=== PATIENT | female | born 1930 | race Caucasian/White ===

== ENCOUNTER 2021-01-31 03:19 | Inpatient (IN) ==
[2021-01-31] MEDS ORDERED: Acetaminophen 325 MG TABLET PO PRN (10:43)
[2021-01-31] MEDS ORDERED: Melatonin 3 MG TABLET PO PRN (10:43)
[2021-01-31] MEDS ORDERED: Naloxone 0.4 MG/ML INJ IVP PRN (10:43)
[2021-01-31] MEDS ORDERED: 0.9 % Sodium Chloride 1,000 ML IVC SCH (10:45)
[2021-01-31] MEDS ORDERED: Furosemide 40 MG/4 ML VIAL IVP ONE (10:54)
[2021-01-31 12:01] LABS: Basophils # 0.1 K/mcL (0.0-0.2); Basophils % 0.8 %; Eosinophils # 0.2 K/mcL (0.0-0.6); Eosinophils % 1.8 %; Hematocrit 39.1 % (35.3-44.9); Hemoglobin 12.4 g/dL (11.5-15.4); Immature Granulocytes % 0.5 % (0-4); Lymphocytes # 1.3 K/mcL (0.6-4.6); Lymphocytes % 12.8 %; Mean Corpuscular HGB Conc 31.7 g/dL (31.6-35.5); Mean Corpuscular Hemoglobin 31.1 pg (28.0-33.3); Mean Platelet Volume 9.8 fL (9.4-12.4); Monocytes # 0.8 K/mcL (0.0-1.3); Monocytes % 7.7 %; Neutrophils # 7.9 K/mcL (1.6-8.9); Platelet Count 266 K/mcL (140-400); Red Blood Count 3.99 M/mcL (3.82-4.97); Red Cell Distribution Width 15.7 % (11.5-14.5); Segmented Neutrophils % 76.4 %; White Blood Count 10.3 K/mcL (4.3-11.1)
[2021-01-31 12:17] LABS: Albumin 3.3 g/dL (3.5-5.7); Bilirubin,Total 0.8 mg/dL (0.3-1.0); Globulin 3.4 g/dL (2.4-3.5); Potassium 3.3 mEq/L (3.5-5.1); Total Protein 6.7 g/dL (6.4-8.9)
[2021-01-31 13:16] LABS: Adenovirus Not Detected (Not Detect); Bordetella Pertussis Not Detected (Not Detect); Chlamydophila pneumoniae Not Detected (Not Detect); Coronavirus 229E Not Detected (Not Detect); Coronavirus HKU1 Not Detected (Not Detect); Coronavirus NL63 Not Detected (Not Detect); Coronavirus OC43 Not Detected (Not Detect); Human Metapneumovirus Not Detected (Not Detect); Human Rhinovirus/Enterovirus Not Detected (Not Detect); Influenza A Subtype 2009 H1 Not Detected (Not Detect); Influenza B Not Detected (Not Detect); Mycoplasma pneumoniae Not Detected (Not Detect); Parainfluenza Virus 1 Not Detected (Not Detect); Parainfluenza Virus 2 Not Detected (Not Detect); Parainfluenza Virus 3 Not Detected (Not Detect); Parainfluenza Virus 4 Not Detected (Not Detect); Respiratory Syncytial Virus Not Detected (Not Detect); SARS-CoV-2 Not Detected (Not Detect)
[2021-01-31] MEDS ORDERED: Amiodarone Premix 150 MG/100 ML BAG IVPB ONE (13:57)
[2021-01-31] MEDS ORDERED: Amiodarone Premix 360 MG/200 ML BAG IVC ONE (13:57)
[2021-01-31] MEDS ORDERED: *HR* Metoprolol 5 MG/5 ML VIAL IVP ONE ×2 (14:10)
[2021-01-31] MEDS ORDERED: Isovue-370 500 ML BOTTLE IVP ONE (14:17)
[2021-01-31] MEDS ORDERED: *HR* Heparin 5,000 UNIT/ML VIAL IVP PRN ×2 (14:23)
[2021-01-31] MEDS ORDERED: *HR* Heparin 5,000 UNIT/ML VIAL IVP ONE (14:23)
[2021-01-31] MEDS ORDERED: Heparin 25,000UNIT/250ML 1/2NS 25,000 UNIT/250 ML IV.SOLN IVC SCH (14:30)
[2021-01-31 14:35] LABS: ABG Base Excess 10 mEq/L (-2 to 3); ABG HCO3 37 mEq/L (21-27); ABG Oxygen Saturation 89 % (95-98); ABG PCO2 59 mmHg (35-45); ABG PO2 59 mmHg (85-104); ABG TCO2 39 mEq/L (20-26); Blood Gas Pressure Support 12 cm H2O
[2021-01-31 14:40] LABS: Magnesium 1.8 mg/dL (1.6-2.6)
[2021-01-31] MEDS ORDERED: Heparin 1,000 UNITS/500 mL 500 ML ONE (14:47)
[2021-01-31] MEDS ORDERED: *HR* Metoprolol 5 MG/5 ML VIAL IVP STA (15:59)
[2021-01-31] MEDS ORDERED: Piperacillin/Tazobactam 3.375 GM in 0.9 % Sodium Chloride Mini Bag 100 ML IVPB SCH (16:00)
[2021-01-31] MEDS: Ondansetron 4 MG/2 ML VIAL IVP PRN (16:06)
[2021-01-31 16:10] LABS: Hematocrit 41.7 % (35.3-44.9); Hemoglobin 12.9 g/dL (11.5-15.4); Mean Corpuscular HGB Conc 30.9 g/dL (31.6-35.5); Mean Corpuscular Hemoglobin 30.1 pg (28.0-33.3); Mean Corpuscular Volume 97.4 fL (83.0-100.0); Mean Platelet Volume 9.9 fL (9.4-12.4); Platelet Count 278 K/mcL (140-400); Red Blood Count 4.28 M/mcL (3.82-4.97); Red Cell Distribution Width 15.9 % (11.5-14.5)
[2021-01-31] MEDS ORDERED: Perflutren Lipid Microsphere 1.3 ML in 0.9 % Sodium Chloride 8.7 ML IVP PRN (16:11)
[2021-01-31 16:19] LABS: Heparin anti-factor XA UFH < 0.04 IU/mL (0.30-0.70); INR 1.1; Prothrombin Time 12.1 Seconds (9.4-12.1)
[2021-01-31] MEDS: Heparin 25,000 UNIT/250 ML 25,000 UNIT/250 ML IV.SOLN IVC SCH (16:36)
[2021-01-31] MEDS: *HR* Metoprolol 5 MG/5 ML VIAL IVP SCH ×2 (18:55→22:49)
[2021-01-31] MEDS ORDERED: 0.9 % Sodium Chloride 500 ML IV ONE (19:06)
[2021-01-31] MEDS ORDERED: 0.9 % Sodium Chloride 1,000 ML ONE (19:06)
[2021-01-31] MEDS ORDERED: Amiodarone Premix 360 MG/200 ML BAG IVC SCH (19:57)
[2021-01-31] MEDS ORDERED: Vancomycin 1,500 MG/265 ML IV.SOLN IVPB ONE (20:00)
[2021-01-31] MEDS: Cefepime HCl 1,000 MG in 0.9 % Sodium Chloride Mini Bag 100 ML IVPB SCH (20:15)
[2021-01-31] MEDS ORDERED: Levalbuterol Neb 1.25 MG/3 ML ONE (20:44)
[2021-01-31] MEDS: Levalbuterol Neb 1.25 MG/3 ML IH SCH (20:55)
[2021-01-31 23:05] LABS: Calcium 8.7 mg/dL (8.6-10.3); Potassium 3.8 mEq/L (3.5-5.1)
[2021-02-01] MEDS: Levalbuterol Neb 1.25 MG/3 ML IH SCH ×4 (00:06→11:16)
[2021-02-01] MEDS: Ondansetron 4 MG/2 ML VIAL IVP PRN ×3 (00:11→08:27)
[2021-02-01] MEDS ORDERED: hydrALAZINE 10 MG TABLET PO PRN (01:12)
[2021-02-01] MEDS ORDERED: *HR* Labetalol 20 MG/4 ML SYRINGE IVP PRN (01:28)
[2021-02-01] MEDS ORDERED: Morphine Sulfate 2 MG/ML SYRINGE IVP ONE (02:11)
[2021-02-01] MEDS ORDERED: *HR* Promethazine 25 MG/ML VIAL IM PRN (05:02)
[2021-02-01 05:09] LABS: Basophils % 0.3 %; Hematocrit 40.1 % (35.3-44.9); Hemoglobin 12.1 g/dL (11.5-15.4); Immature Granulocytes % 0.5 % (0-4); Lymphocytes # 0.5 K/mcL (0.6-4.6); Lymphocytes % 4.1 %; Mean Corpuscular HGB Conc 30.2 g/dL (31.6-35.5); Mean Corpuscular Hemoglobin 29.8 pg (28.0-33.3); Mean Corpuscular Volume 98.8 fL (83.0-100.0); Mean Platelet Volume 10.3 fL (9.4-12.4); Monocytes # 0.6 K/mcL (0.0-1.3); Monocytes % 4.3 %; Neutrophils # 11.9 K/mcL (1.6-8.9); Platelet Count 283 K/mcL (140-400); Red Blood Count 4.06 M/mcL (3.82-4.97); Red Cell Distribution Width 15.6 % (11.5-14.5); Segmented Neutrophils % 90.8 %; White Blood Count 13.1 K/mcL (4.3-11.1)
[2021-02-01 05:24] LABS: Magnesium 1.8 mg/dL (1.6-2.6)
[2021-02-01 05:29] LABS: ABG Base Excess 10 mEq/L (-2 to 3); ABG HCO3 39 mEq/L (21-27); ABG Oxygen Saturation 83 % (95-98); ABG PCO2 73 mmHg (35-45); ABG PH 7.34 pH Units (7.32-7.45); ABG PO2 53 mmHg (85-104); ABG TCO2 42 mEq/L (20-26)
[2021-02-01] MEDS: *HR* Metoprolol 5 MG/5 ML VIAL IVP SCH ×2 (05:46→13:22)
[2021-02-01] MEDS ORDERED: *HR* Enoxaparin 40 MG/0.4 ML SYRINGE SQ SCH (06:00)
[2021-02-01] MEDS ORDERED: Furosemide 40 MG/4 ML VIAL IVP STA (08:30)
[2021-02-01] MEDS ORDERED: *HR* Promethazine 25 MG/ML VIAL IM STA (08:32)
[2021-02-01] MEDS ORDERED: Furosemide 40 MG/4 ML VIAL IVP SCH (09:00)
[2021-02-01] MEDS: Cefepime HCl 1,000 MG in 0.9 % Sodium Chloride Mini Bag 100 ML IVPB SCH (09:23)
[2021-02-01] MEDS ORDERED: *HR* LORazepam 2 MG/ML VIAL IVP STA (11:55)
[2021-02-01 12:15] VITALS: BP 142/83; PULSE 110; TEMP 98.2; O2SAT 89
[2021-02-01] MEDS: Heparin 25,000 UNIT/250 ML 25,000 UNIT/250 ML IV.SOLN IVC SCH (12:32)
[2021-02-01] MEDS ORDERED: Levalbuterol Neb 1.25 MG/3 ML IH PRN (13:56)
[2021-02-01] MEDS ORDERED: *HR* LORazepam 2 MG/ML VIAL IVP PRN (14:14)
[2021-02-01] MEDS ORDERED: NON-FORMULARY MEDICATION 1 EACH EACH (Diclofenac Sodium [Voltaren] 100 GM Gel..Gram.) TP PRN (15:18)
[2021-02-01] MEDS ORDERED: Loratadine 10 MG TABLET PO PRN (15:18)
[2021-02-01] MEDS ORDERED: *HR* Metoprolol 5 MG/5 ML VIAL IVP PRN (15:22)
[2021-02-01] MEDS ORDERED: *HR* FentaNYL (PF) 100 MCG/2 ML VIAL IVP PRN (16:00)
[2021-02-01] MEDS ORDERED: *HR* FentaNYL (PF) 100 MCG/2 ML VIAL IVP SCH (16:00)
[2021-02-01] MEDS ORDERED: Scopolamine Patch 1.5 MG PATCH.TD72 TD SCH (16:30)
[2021-02-01] MEDS ORDERED: cloNIDine HCL 0.1 MG TABLET PO SCH (21:00)
[2021-02-01] MEDS ORDERED: cilostazoL 100 MG TABLET PO SCH (21:00)
[2021-02-01] MEDS ORDERED: Gabapentin 300 MG CAPSULE PO SCH (21:00)
[2021-02-01] MEDS ORDERED: Sennosides/Docusate Sodium TABLET PO SCH (21:00)
[2021-02-02] MEDS ORDERED: Cyanocobalamin (B-12) 1,000 MCG TABLET PO SCH (09:00)
[2021-02-02] MEDS ORDERED: Multivit/Ca/Min/Fe/FA 1 TAB TABLET PO SCH (09:00)
[2021-02-02] MEDS ORDERED: Metoprolol XL (24 HR) Succ 50 MG TAB.ER.24H PO SCH (09:00)
== END 2021-02-01 19:01 | disposition expired | DRG 193 ==
LOC: 2NNU 09:17
PROVIDERS: ADMIT Family Medicine; ATTEND Family Medicine